=== PATIENT | male | born 1985 ===

== ENCOUNTER 2021-06-24 15:17 | Emergency (ER) | payer SELFPAY ==
[2021-06-24] MEDS ORDERED: ASPIRIN 325 MG TAB PO ONE (16:31)
--- NOTE | 2021-06-24 16:31 | Emergency Department Report ---
ED Chest Pain HPI - General Chief Complaint: Chest Pain Stated Complaint: HIGH BP,CHEST PAIN Source: patient Mode of arrival: Ambulatory Limitations: No Limitations - History of Present Illness Initial Comments: 36-year-old male presents to the ER today with complaints of left-sided chest pain. Patient states that his symptoms started 2 to 3 days ago. He states that has been intermittent. 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 He denies any pleuritic pain. He denies any radiation of the pain. He reports associated intermittent dizziness, and pressure in his head, and intermittent numbness in his fingers. He denies any associated nausea, vomiting, cough, shortness of breath, or extremity swelling, calf pain or abdominal pain. He denies any generalized or focal weakness. He denies any fever or chills. Patient admits that he does have a history of hypertension, but has stopped taking his blood pressure medication (lisinopril/hctz) for about a year due to side effect of erectile dysfunction. Patient states that he went to [facility] yesterday and noticed that his blood pressure was elevated, he remembers the systolic number was 160. He denies any other significant past medical history. He denies any tobacco use, or drug use. He states that his dad had a OR at 45 but no other family history of heart disease. He states that his never had a stress test in the past. Complaint: chest pain -: days(s) (2-3) - Related Data Previous Rx's Medication Instructions Recorded Last Taken Type Amlodipine Besylate [Norvasc] 5 mg PO DAILY #30 tablet 06/24/21 Unknown Rx Allergies Allergy/AdvReac Type Severity Reaction Status Date / Time No Known Allergies Allergy Unverified 06/24/21 15:27 Heart Score - HEART Score History: Slightly suspicious EKG: Normal Age: < 45 Risk factors: 1-2 risk factors Troponin: < normal limit HEART Score: 1 - EKG Read Time Time EKG Completed: 15:29 EKG Read Time: 15:34 - Critical Actions Critical Actions: 0-3 pts:0.9-1.7%risk of adverse cardiac event.Candidate for discharge ED Review of Systems ROS: Stated complaint: HIGH BP,CHEST PAIN Other details as noted in HPI Comment: All other systems reviewed and negative Constitutional: denies: chills, fever Eyes: denies: eye pain, eye discharge, vision change ENT: denies: ear pain, throat pain Respiratory: denies: cough, shortness of breath, wheezing Cardiovascular: chest pain Gastrointestinal: denies: abdominal pain, nausea, diarrhea, constipation, hematemesis, melena Genitourinary: denies: urgency, dysuria, frequency, hematuria, discharge, testicular pain, testicular mass Musculoskeletal: denies: back pain, joint swelling, arthralgia Skin: denies: rash, lesions, change in color, change in hair/nails, pruritus Neurological: headache, other (dizzy ) Psychiatric: denies: anxiety, depression, auditory hallucinations, visual hallucinations, homicidal thoughts, suicidal thoughts Hematological/Lymphatic: denies: easy bleeding, easy bruising ED Past Medical Hx - Past Medical History Previous Medical History?: Yes Hx Hypertension: Yes - Medications Home Medications: Home Medications Medication Instructions Recorded Confirmed Last Taken Type Amlodipine Besylate [Norvasc] 5 mg PO DAILY #30 tablet 06/24/21 Unknown Rx ED Physical Exam - General Limitations: No Limitations General appearance: alert, in no apparent distress - Head Head exam: Present: atraumatic, normocephalic, normal inspection - Eye Eye exam: Present: normal appearance, PERRL, EOMI Pupils: Present: normal accommodation - ENT ENT exam: Present: normal exam, mucous membranes moist, TM's normal bilaterally - Neck Neck exam: Present: normal inspection, full ROM. Absent: meningismus - Respiratory Respiratory exam: Present: normal lung sounds bilaterally. Absent: respiratory distress, wheezes, rales, rhonchi, stridor - Cardiovascular Cardiovascular Exam: Present: regular rate, normal rhythm, normal heart sounds - GI/Abdominal GI/Abdominal exam: Present: soft. Absent: distended, tenderness, guarding, rebound - Extremities Exam Extremities exam: Present: normal inspection. Absent: pedal edema, calf tenderness - Neurological Exam Neurological exam: Present: alert, oriented X3, CN II-XII intact, normal gait. Absent: motor sensory deficit - Psychiatric Psychiatric exam: Present: normal affect, normal mood - Skin Skin exam: Present: intact ED Course Vital Signs 06/24/21 15:22 Temperature 98.6 F Pulse Rate 71 Respiratory 20 Rate Blood Pressure 141/99 O2 Sat by Pulse 100 Oximetry ED Medical Decision Making - Lab Data Result diagrams: 06/24/21 16:51 06/24/21 16:51 - EKG Data EKG shows normal: sinus rhythm Rate: normal (66) - EKG Data Interpretation: normal EKG 06/24/212010 - Repeat EKG Sinus rhythm with a rate of 60 Inferior infact, old Probable LVH Inverted T waves Lead III - Radiology Data Radiology results: report reviewed Patient: ARMEN BARNARD MR#: [id number] 7 : 1985 Acct:[id number] Age/Sex: 36 / M ADM Date: 06/24/21 Loc: ED Attending Dr: Ordering Physician: ALEXSANDER COSBY Date of Service: 06/24/21 Procedure(s): XR chest routine 2V Accession Number(s): [id number] cc: ALEXSANDER COSBY Fluoro Time In Minutes: CHEST 2 VIEWS INDICATION / CLINICAL INFORMATION: Chest Pain. COMPARISON: None available. FINDINGS: SUPPORT DEVICES: None. HEART / MEDIASTINUM: No significant abnormality. LUNGS / PLEURA: No significant pulmonary or pleural abnormality. No pneumothorax. Tiny calcification in the right upper lobe likely represents a granuloma. ADDITIONAL FINDINGS: No significant additional findings. IMPRESSION: 1. No acute findings. Signer Name: Alhaji Smith MD Signed: 06/24/2021 5:25 PM Workstation Name: [id number] Transcribed By: DB Dictated By: ALHAJI SMITH MD Electronically Authenticated By: ALHAJI SMITH MD Signed Date/Time: 06/24/211724 DD/ 23 TD/TT: - Medical Decision Making All labs reviewed -- CBC and CMP unremarkable. Trop x 2 normal. CXR shows nothing acute. Initial EKG was normal, with sinus rhythm and no evidence of ST AIME, acute ischemic changes or significant dysrhythmias. Repeat EKG showed probable LVH and some inverted T waves in lead III. Patient currently resting comfortably. He is not in any acute distress. He is not toxic or ill-appearing. He is neurologically intact. He has no risk factors for PE and PERC of 0. His heart score is currently less than 3. Discussed case, lab results and EKG results with Dr Berry, and she recommend discussing case with nurse assessor. 2044: Discussed case with Dr Juarez, also send him a copy of patient's EKGs which he reviewed. He considers the EKGs to be normal and recommend patient be discharged home, patient to follow-up at their office for an outpatient stress test. Discussed all results with patient. Informed him that he will need to follow-up with nurse assessor either this week or next week for outpatient stress test. He will be started on Norvasc, and also informed him that he needs to follow-up with PCP to continue monitoring his blood pressure and for any possible medication changes. Informed patient that it is important that he stays compliant with his blood pressure medications. Patient expressed understanding of all instructions and agree with plan. Patient stable at time of discharge. Critical care attestation.: If time is entered above; I have spent that time in minutes in the direct care of this critically ill patient, excluding procedure time. ED Disposition Clinical Impression: Nonspecific chest pain, Uncontrolled hypertension, Noncompliance with medication regimen Disposition: HOME / SELF CARE / HOMELESS Is pt being admited?: No Does the pt Need Aspirin: No Condition: Stable Instructions: Nonspecific Chest Pain, Adult, Hypertension, Adult, [id number], Managing Your Hypertension, Hypertension (ED) Additional Instructions: I recommend that you start the Norvasc, and take it as prescribed. It is important that you follow-up closely with your PCP for continued monitoring of your high blood pressure and any changes that need to be made to your blood pressure medications. Continue taking baby aspirin every day. It is important that you follow-up with the nurse assessor listed on your discharge instructions. I recommend that you make an appointment for this week or next week for further evaluation including an outpatient stress test. Return to the ER if your symptoms changes or worsens in any way. Prescriptions: Amlodipine Besylate [Norvasc] 5 mg PO DAILY #30 tablet Referrals: DANITZA MACEDO MD [Staff Physician] - 3-5 Days JORGE A JUAREZ MD [Staff Physician] - 3-5 Days ([employer] ) Time of Disposition: 20:10
[2021-06-24 16:35] VITALS: BP 141/99
[2021-06-24 17:16] LABS: Basophils # (Auto) 0.1 K/mm3 (0.0-0.1); Basophils % (Auto) 1.4 % (0.0-1.8); Eosinophils # (Auto) 0.1 K/mm3 (0.0-0.4); Eosinophils % (Auto) 2.1 % (0.0-4.3); Hematocrit 44.1 % (35.5-45.6); Hemoglobin 14.9 gm/dl (11.8-15.2); Lymphocytes % (Auto) 33.9 % (13.4-35.0); Mean Corpuscular HGB Conc 34 % (32-34); Mean Corpuscular Volume 90 fl (84-94); Monocytes # (Auto) 0.6 K/mm3 (0.0-0.8); Monocytes % (Auto) 10.5 % (0.0-7.3); Platelet Count 280 K/mm3 (140-440); Red Blood Count 4.89 M/mm3 (3.65-5.03); Red Cell Distribution Width 13.4 % (13.2-15.2)
--- NOTE | 2021-06-24 17:29 | XRay Report ---
CHEST 2 VIEWS INDICATION / CLINICAL INFORMATION: Chest Pain. COMPARISON: None available. FINDINGS: SUPPORT DEVICES: None. HEART / MEDIASTINUM: No significant abnormality. LUNGS / PLEURA: No significant pulmonary or pleural abnormality. No pneumothorax. Tiny calcification in the right upper lobe likely represents a granuloma. ADDITIONAL FINDINGS: No significant additional findings. IMPRESSION: 1. No acute findings. Signer Name: Alhaji Smith MD Signed: 06/24/2021 5:25 PM Workstation Name: [id number]
[2021-06-24 17:31] LABS: Alanine Aminotransferase 94 units/L (7-56); Albumin 4.7 g/dL (3.9-5); BUN/Creatinine Ratio 24; Blood Urea Nitrogen 19 mg/dL (9-20); Calcium 9.3 mg/dL (8.4-10.2); Hemolysis Index 100
--- NOTE | 2021-06-25 08:39 | Electrocardiograph Report ---
[facility] Test Date: 2021-06-24 Test Time: 15:29:45 Pat Name: ARMEN BARNARD Department: Room: Gender: M Coding Consultant: ALEJANDRO : 1985 Requested By: ALEXSANDER COSBY Order Number: [id number] Reading MD: Miguel Angel Juarez Measurements Intervals [place] Rate: 66 P: 48 TX: 190 QRS: 69 QRSD: 101 T: 74 QT: 386 QTc: 403 Interpretive Statements Sinus rhythm No previous ECG available for comparison Electronically Signed On 06-25-2021 8:38:49 EDT by Miguel Angel Juarez
--- NOTE | 2021-06-25 08:41 | Electrocardiograph Report ---
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
== END 2021-06-24 21:00 | disposition home or self-care (01) ==
LOC: ED 15:17
DX: I10 Essential (primary) hypertension (principal); R07.9 Chest pain, unspecified; Z91.14 Patient's other noncompliance with medication regimen
CPT/HCPCS: 36415; 71046; 80053; 83690; 84484; 85025; 93005; 99283